=== PATIENT | male | born 1945 ===

== ENCOUNTER 2021-08-31 11:12 | Inpatient (IN) ==
[2021-08-31] MEDS ORDERED: CeFAZolin Syr 2,000MG/20 ML 2,000 MG/20 ML SYRINGE IVPB ONE (11:37)
[2021-08-31] MEDS ORDERED: MetroNIDAZOLE 500 MG/100 ML 500 MG/100 ML BAG IVPB ONE (11:37)
[2021-08-31] MEDS: Ringers Solution, Lactated 1,000 ML IVC SCH ×2 (11:51→17:58)
[2021-08-31] MEDS ORDERED: *HR* FentaNYL (PF) 100 MCG/2 ML VIAL ONE ×2 (12:16→15:26)
[2021-08-31] MEDS ORDERED: Lidocaine HCL 4 ML Topical Solution (Laryng-O-Jet Kit Sterile Pak) TP ONE (12:16)
[2021-08-31] MEDS ORDERED: *HR* Midazolam HCl 2 MG/2 ML VIAL ONE (12:16)
[2021-08-31] MEDS ORDERED: *HR* Rocuronium Bromide 50 MG/5 ML VIAL ONE (12:16)
[2021-08-31] MEDS ORDERED: *HR* Propofol 200 MG/20 ML VIAL IVP ONE (12:16)
[2021-08-31] MEDS ORDERED: Lidocaine -MPF 2% 5 ML VIAL ONE (12:16)
[2021-08-31] MEDS ORDERED: Ondansetron 4 MG/2 ML VIAL ONE (12:16)
[2021-08-31] MEDS ORDERED: Albumin Human 5% 12.5 GM/250 ML IV.SOLN ONE (16:01)
[2021-08-31] MEDS ORDERED: *HR* HYDROMORPHONE 2 MG/ML VIAL ONE (17:07)
[2021-08-31] MEDS ORDERED: Acetaminophen IV 1,000 MG/100 ML BAG IVPB ONE (17:28)
[2021-08-31] MEDS: *HR* HYDROmorphone PF 0.5 MG/0.5 ML SYRINGE IVP PRN ×4 (17:40→17:55)
[2021-08-31] MEDS ORDERED: *HR* Metoprolol 5 MG/5 ML VIAL IVP ONE ×2 (17:54→18:00)
[2021-08-31] MEDS ORDERED: *HR* HYDROmorphone PCA *PREMADE* 20 MG/1MG/ML (20mL) PCA VIAL IVC PRN (18:47)
[2021-08-31] MEDS ORDERED: Naloxone 0.4 MG/ML INJ IVP PRN (18:47)
[2021-08-31] MEDS: 0.9 % Sodium Chloride 1,000 ML IVC SCH (19:57)
[2021-08-31] MEDS: Acetaminophen IV 1,000 MG/100 ML BAG IVPB SCH (20:06)
[2021-08-31] MEDS: Gabapentin 300 MG CAPSULE PO SCH (20:07)
[2021-09-01] MEDS: Acetaminophen IV 1,000 MG/100 ML BAG IVPB SCH ×4 (02:33→20:13)
[2021-09-01] MEDS: 0.9 % Sodium Chloride 1,000 ML IVC SCH ×2 (06:13→14:09)
[2021-09-01 06:40] LABS: Hemoglobin 12.6 g/dL (12.9-16.9)
[2021-09-01 07:05] LABS: BUN/Creatinine Ratio 18 (6-26); Blood Urea Nitrogen 13 mg/dL (8-23); Calcium 8.5 mg/dL (8.6-10.3); Carbon Dioxide 25 mEq/L (23-29); Chloride 104 mEq/L (98-107); Glucose 156 mg/dL (70-105); Magnesium 1.7 mg/dL (1.6-2.6); Osmolality,Calculated 287 (280-300); Phosphorous 3.2 mg/dL (2.7-4.5); Potassium 3.9 mEq/L (3.5-5.1); Sodium 137 mEq/L (136-145); eGFR For African Americans > 60 (> 60); eGFR For Non-African Americans > 60 (> 60)
[2021-09-01] MEDS: hydroCHLOROthiazide 25 MG TABLET PO SCH (08:12)
[2021-09-01] MEDS: Venlafaxine XR (24 HR) 37.5 MG CAP.ER.24H PO SCH (08:12)
[2021-09-01] MEDS: Gabapentin 300 MG CAPSULE PO SCH ×2 (08:12→20:13)
[2021-09-01] MEDS: D5% in 0.45% NACL w KCl 20 MEQ/1,000 ML MLS IVC SCH (16:45)
[2021-09-01] MEDS: Ondansetron 4 MG/2 ML VIAL IVP PRN (22:41)
[2021-09-02] MEDS: Acetaminophen IV 1,000 MG/100 ML BAG IVPB SCH ×5 (01:31→23:11)
[2021-09-02 01:42] LABS: Basophils % 0.2 %; Hematocrit 36.4 % (37.5-50.1); Hemoglobin 12.5 g/dL (12.9-16.9); Immature Granulocytes % 0.5 % (0-4); Lymphocytes # 0.5 K/mcL (0.6-4.6); Lymphocytes % 4.4 %; Mean Corpuscular HGB Conc 34.3 g/dL (31.6-35.5); Mean Corpuscular Hemoglobin 32.7 pg (28.0-33.3); Mean Corpuscular Volume 95.3 fL (83.0-100.0); Mean Platelet Volume 10.6 fL (9.4-12.4); Monocytes # 1.2 K/mcL (0.0-1.3); Monocytes % 10.5 %; Neutrophils # 9.9 K/mcL (1.6-8.9); Platelet Count 141 K/mcL (140-400); Red Blood Count 3.82 M/mcL (4.19-5.50); Red Cell Distribution Width 13.2 % (11.5-14.5); Segmented Neutrophils % 84.4 %; White Blood Count 11.7 K/mcL (4.3-11.1)
[2021-09-02] MEDS: D5% in 0.45% NACL w KCl 20 MEQ/1,000 ML MLS IVC SCH (03:00)
[2021-09-02] MEDS: Ondansetron 4 MG/2 ML VIAL IVP PRN ×2 (04:00→12:09)
[2021-09-02] MEDS: *HR* Heparin 5,000 UNIT/ML VIAL SQ SCH ×3 (05:02→21:10)
[2021-09-02] MEDS: Gabapentin 300 MG CAPSULE PO SCH ×2 (09:46→21:10)
[2021-09-02] MEDS: hydroCHLOROthiazide 25 MG TABLET PO SCH (09:47)
[2021-09-02] MEDS: Venlafaxine XR (24 HR) 37.5 MG CAP.ER.24H PO SCH (09:47)
[2021-09-02] MEDS ORDERED: Ketorolac 30 MG/ML VIAL IVP PRN (10:31)
[2021-09-02 11:25] LABS: BUN/Creatinine Ratio 16 (6-26); Blood Urea Nitrogen 9 mg/dL (8-23); Calcium 8.4 mg/dL (8.6-10.3); Carbon Dioxide 27 mEq/L (23-29); Chloride 101 mEq/L (98-107); Glucose 165 mg/dL (70-105); Osmolality,Calculated 280 (280-300); Potassium 3.8 mEq/L (3.5-5.1); Sodium 134 mEq/L (136-145); eGFR For African Americans > 60 (> 60); eGFR For Non-African Americans > 60 (> 60)
[2021-09-02] MEDS: Pantoprazole 40 MG VIAL IVP SCH (13:09)
[2021-09-02] MEDS: 0.9 % Sodium Chloride 1,000 ML IVC SCH ×2 (13:09→23:10)
[2021-09-02] MEDS ORDERED: ALPRAZolam 0.25 MG TABLET PO PRN (16:25)
[2021-09-02] MEDS ORDERED: Chloraseptic Spray 177 ML BOTTLE MM PRN (16:26)
[2021-09-03] MEDS: *HR* Heparin 5,000 UNIT/ML VIAL SQ SCH ×3 (05:21→22:20)
[2021-09-03 05:55] LABS: Basophils % 0.1 %; Eosinophils % 0.5 %; Hematocrit 33.7 % (37.5-50.1); Hemoglobin 11.4 g/dL (12.9-16.9); Immature Granulocytes % 0.4 % (0-4); Lymphocytes # 0.5 K/mcL (0.6-4.6); Lymphocytes % 6.6 %; Mean Corpuscular HGB Conc 33.8 g/dL (31.6-35.5); Mean Corpuscular Hemoglobin 32.3 pg (28.0-33.3); Mean Corpuscular Volume 95.5 fL (83.0-100.0); Monocytes # 0.9 K/mcL (0.0-1.3); Monocytes % 12.1 %; Neutrophils # 6.1 K/mcL (1.6-8.9); Platelet Count 121 K/mcL (140-400); Red Blood Count 3.53 M/mcL (4.19-5.50); Segmented Neutrophils % 80.3 %; White Blood Count 7.6 K/mcL (4.3-11.1)
[2021-09-03 06:17] LABS: Alanine Aminotransferase 16 Units/L (7-52); Albumin 3.2 g/dL (3.5-5.7); Albumin/Globulin Ratio 1.5 (1.1-2.2); Alkaline Phosphatase 41 Units/L (34-104); Aspartate Amino Transferase 23 Units/L (13-39); BUN/Creatinine Ratio 19 (6-26); Bilirubin,Total 0.6 mg/dL (0.3-1.0); Blood Urea Nitrogen 12 mg/dL (8-23); Calcium 8.3 mg/dL (8.6-10.3); Carbon Dioxide 29 mEq/L (23-29); Chloride 105 mEq/L (98-107); Globulin 2.1 g/dL (2.4-3.5); Glucose 106 mg/dL (70-105); Osmolality,Calculated 290 (280-300); Potassium 3.7 mEq/L (3.5-5.1); Sodium 140 mEq/L (136-145); Total Protein 5.3 g/dL (6.4-8.9); eGFR For African Americans > 60 (> 60); eGFR For Non-African Americans > 60 (> 60)
[2021-09-03] MEDS ORDERED: Lidocaine -MPF 1% 5 ML AMPUL INFILT ONE (08:50)
[2021-09-03] MEDS ORDERED: Dextrose 4 GM Chewable Tablets PO PRN ×2 (08:51)
[2021-09-03] MEDS ORDERED: *HR* Dextrose 50 % in Water (Syg) 50 ML SYRINGE IVP PRN (08:51)
[2021-09-03] MEDS ORDERED: D5% in Water 1,000 ML IVC PRN (08:51)
[2021-09-03] MEDS ORDERED: 0.9 % Sodium Chloride 1,000 ML IVC SCH (08:52)
[2021-09-03 09:14] LABS: Chol/HDL Ratio 3.4 (0-4.9); Cholesterol 108 mg/dL (< 200); HDL Cholesterol 32 mg/dL (40-59); LDL Cholesterol,Calculated 46 mg/dL (< 100); Triglycerides 148 mg/dL (< 150)
[2021-09-03] MEDS: Acetaminophen IV 1,000 MG/100 ML BAG IVPB SCH ×3 (09:20→23:04)
[2021-09-03] MEDS: hydroCHLOROthiazide 25 MG TABLET PO SCH (09:23)
[2021-09-03] MEDS: Gabapentin 300 MG CAPSULE PO SCH ×2 (09:23→22:20)
[2021-09-03] MEDS: Venlafaxine XR (24 HR) 37.5 MG CAP.ER.24H PO SCH (09:24)
[2021-09-03] MEDS: Pantoprazole 40 MG VIAL IVP SCH (09:24)
[2021-09-03] MEDS ORDERED: *HR* LORazepam 2 MG/ML VIAL IVP PRN (09:53)
[2021-09-03] MEDS ORDERED: Orphenadrine 60 MG/2 ML VIAL IM PRN (09:57)
[2021-09-03] MEDS ORDERED: Saliva Stimulant 44.3ml BOTTLE PO PRN (10:01)
[2021-09-03 10:33] LABS: Estimated Average Glucose 111 mg/dl; Hemoglobin A1C 5.5 %
[2021-09-03] MEDS: Insulin LISPRO 300 UNITS/3 ML VIAL SUBQ SCH ×3 (12:31→22:21)
[2021-09-03] MEDS: D5% in 0.45% NACL w KCl 20 MEQ/1,000 ML MLS IVC SCH (14:08)
[2021-09-04] MEDS: Insulin LISPRO 300 UNITS/3 ML VIAL SUBQ SCH ×6 (00:38→19:56)
[2021-09-04] MEDS: Acetaminophen IV 1,000 MG/100 ML BAG IVPB SCH ×4 (03:44→19:56)
[2021-09-04] MEDS: D5% in 0.45% NACL w KCl 20 MEQ/1,000 ML MLS IVC SCH ×2 (03:48→16:49)
[2021-09-04 06:54] LABS: Alanine Aminotransferase 14 Units/L (7-52); Albumin 3.2 g/dL (3.5-5.7); Albumin/Globulin Ratio 1.6 (1.1-2.2); Alkaline Phosphatase 45 Units/L (34-104); Aspartate Amino Transferase 19 Units/L (13-39); BUN/Creatinine Ratio 23 (6-26); Bilirubin,Total 0.8 mg/dL (0.3-1.0); Blood Urea Nitrogen 11 mg/dL (8-23); Calcium 8.3 mg/dL (8.6-10.3); Carbon Dioxide 25 mEq/L (23-29); Chloride 105 mEq/L (98-107); Glucose 123 mg/dL (70-105); Osmolality,Calculated 287 (280-300); Phosphorous 2.1 mg/dL (2.7-4.5); Potassium 3.5 mEq/L (3.5-5.1); Sodium 138 mEq/L (136-145); Total Protein 5.2 g/dL (6.4-8.9); eGFR For African Americans > 60 (> 60); eGFR For Non-African Americans > 60 (> 60)
[2021-09-04] MEDS: *HR* Heparin 5,000 UNIT/ML VIAL SQ SCH ×3 (07:32→19:57)
[2021-09-04] MEDS: Pantoprazole 40 MG VIAL IVP SCH (09:06)
[2021-09-04] MEDS ORDERED: D10% in Water 500 ML IVC PRN (11:12)
[2021-09-04] MEDS: Gabapentin 300 MG CAPSULE PO SCH ×2 (12:05→19:56)
[2021-09-04] MEDS: Venlafaxine XR (24 HR) 37.5 MG CAP.ER.24H PO SCH (12:05)
[2021-09-04] MEDS: Clinimix E 5%-15% SOLUTION 2,000 ML IVC SCH (17:47)
[2021-09-05] MEDS: Insulin LISPRO 300 UNITS/3 ML VIAL SUBQ SCH ×6 (04:31→20:41)
[2021-09-05] MEDS: Acetaminophen IV 1,000 MG/100 ML BAG IVPB SCH ×4 (04:31→20:37)
[2021-09-05] MEDS: D5% in 0.45% NACL w KCl 20 MEQ/1,000 ML MLS IVC SCH (04:50)
[2021-09-05] MEDS: *HR* Heparin 5,000 UNIT/ML VIAL SQ SCH ×3 (04:51→22:22)
[2021-09-05 05:58] LABS: Hematocrit 33.2 % (37.5-50.1); Hemoglobin 11.6 g/dL (12.9-16.9)
[2021-09-05] MEDS: Pantoprazole 40 MG VIAL IVP SCH (09:16)
[2021-09-05] MEDS: Gabapentin 300 MG CAPSULE PO SCH (09:16)
[2021-09-05] MEDS: Venlafaxine XR (24 HR) 37.5 MG CAP.ER.24H PO SCH (09:16)
[2021-09-05 10:19] LABS: BUN/Creatinine Ratio 23 (6-26); Blood Urea Nitrogen 11 mg/dL (8-23); Calcium 8.3 mg/dL (8.6-10.3); Carbon Dioxide 25 mEq/L (23-29); Chloride 104 mEq/L (98-107); Glucose 137 mg/dL (70-105); Magnesium 2.1 mg/dL (1.6-2.6); Osmolality,Calculated 284 (280-300); Phosphorous 2.6 mg/dL (2.7-4.5); Potassium 3.7 mEq/L (3.5-5.1); Sodium 136 mEq/L (136-145); eGFR For African Americans > 60 (> 60); eGFR For Non-African Americans > 60 (> 60)
[2021-09-05] MEDS ORDERED: Potassium Phosphate 44 MEQ in 0.9 % Sodium Chloride 250 ML IVPB ONE (13:24)
[2021-09-05] MEDS ORDERED: Melatonin 3 MG TABLET PO PRN (13:25)
[2021-09-05] MEDS ORDERED: *HR* OxyCODONE Immed Rel 5 MG TABLET PO PRN (13:25)
[2021-09-05] MEDS ORDERED: Clinimix E 5%-15% SOLUTION 2,000 ML with MVI, adult with vitamin K 10 ML IVC SCH (17:00)
[2021-09-05] MEDS: Clinimix E 5%-15% SOLUTION 2,000 ML IVC SCH (17:10)
[2021-09-06] MEDS: Insulin LISPRO 300 UNITS/3 ML VIAL SUBQ SCH ×6 (00:18→20:56)
[2021-09-06] MEDS: Acetaminophen IV 1,000 MG/100 ML BAG IVPB SCH ×2 (02:41→12:16)
[2021-09-06 05:42] LABS: BUN/Creatinine Ratio 19 (6-26); Blood Urea Nitrogen 10 mg/dL (8-23); Calcium 8.2 mg/dL (8.6-10.3); Carbon Dioxide 24 mEq/L (23-29); Chloride 104 mEq/L (98-107); Glucose 157 mg/dL (70-105); Magnesium 2.2 mg/dL (1.6-2.6); Osmolality,Calculated 286 (280-300); Phosphorous 2.8 mg/dL (2.7-4.5); Potassium 3.5 mEq/L (3.5-5.1); Sodium 137 mEq/L (136-145); eGFR For African Americans > 60 (> 60); eGFR For Non-African Americans > 60 (> 60)
[2021-09-06] MEDS: *HR* Heparin 5,000 UNIT/ML VIAL SQ SCH ×3 (06:03→20:56)
[2021-09-06] MEDS: Gabapentin 100 MG CAPSULE PO SCH (08:27)
[2021-09-06] MEDS: Finasteride 5 MG TABLET PO SCH (08:27)
[2021-09-06] MEDS: Venlafaxine XR (24 HR) 37.5 MG CAP.ER.24H PO SCH (08:27)
[2021-09-06] MEDS: Pantoprazole 40 MG VIAL IVP SCH (08:27)
[2021-09-06] MEDS ORDERED: Ondansetron ODT 4 MG TAB.RAPDIS SL PRN (13:37)
[2021-09-06] MEDS ORDERED: Clinimix E 5%-15% SOLUTION 2,000 ML IVC SCH ×2 (13:39→17:00)
[2021-09-07] MEDS: Insulin LISPRO 300 UNITS/3 ML VIAL SUBQ SCH ×3 (00:25→08:33)
[2021-09-07] MEDS: *HR* Heparin 5,000 UNIT/ML VIAL SQ SCH (06:05)
[2021-09-07 06:52] LABS: BUN/Creatinine Ratio 21 (6-26); Blood Urea Nitrogen 11 mg/dL (8-23); Calcium 8.4 mg/dL (8.6-10.3); Carbon Dioxide 28 mEq/L (23-29); Chloride 101 mEq/L (98-107); Glucose 161 mg/dL (70-105); Magnesium 2.2 mg/dL (1.6-2.6); Osmolality,Calculated 285 (280-300); Phosphorous 2.6 mg/dL (2.7-4.5); Potassium 3.6 mEq/L (3.5-5.1); Sodium 136 mEq/L (136-145); eGFR For African Americans > 60 (> 60); eGFR For Non-African Americans > 60 (> 60)
[2021-09-07 08:03] VITALS: BP 148/73; PULSE 51; TEMP 97.7; O2SAT 93
[2021-09-07] MEDS: Venlafaxine XR (24 HR) 37.5 MG CAP.ER.24H PO SCH (08:38)
[2021-09-07] MEDS: Finasteride 5 MG TABLET PO SCH (08:38)
[2021-09-07] MEDS: Gabapentin 100 MG CAPSULE PO SCH (08:38)
== END 2021-09-07 12:07 | disposition home health service (06) | DRG 330 ==
LOC: SAMDAY 11:12 → 3ANU 18:31
PROVIDERS: ADMIT Surgery; ATTEND Surgery